=== PATIENT | female | born 1980 | race Hispanic/Latino ===

== ENCOUNTER 2022-10-31 05:55 | Day surgery (SDC) | payer MEDICAID ==
[2022-10-30 17:05] VITALS: BP 101/56; PULSE 71; RESP 17
[~2022-10-31] VITALS: Ht 149.9 cm; Wt 58.6 kg
[~2022-10-31 05:55] MED LIST: IBUP-2077 PO; METO10TA41 PO; PREN1TAB80 PO; [UNRECOGNIZED DRUG - OTHER] PO
[2022-10-31 06:10] VITALS: BP 96/53; PULSE 73; RESP 20
[2022-10-31] MEDS ORDERED: PROPOFOL 10 MG/ML 20ML VIAL IV ONE (08:31)
[2022-10-31] MEDS ORDERED: ONDANSETRON 4MG INJ ONE (09:09)
== END 2022-10-31 10:00 | disposition home or self-care (01) ==
LOC: ENDO 05:55 → DAH 05:55 → ENDO 08:48
PROVIDERS: ATTEND Physician Assistant Medical
DX: R13.14 Dysphagia, pharyngoesophageal phase (principal); Z20.822 Contact with and (suspected) exposure to COVID-19; K22.0 Achalasia of cardia; K21.9 Gastro-esophageal reflux disease without esophagitis; K31.84 Gastroparesis; Z98.890 Other specified postprocedural states; Z98.891 History of uterine scar from previous surgery
CPT/HCPCS: 84703; 87426; 36415; 88305; 88342; 43239; J3490; J2405; A4620; A4215 ×2; A4223; A4657 ×2; A7002; A4222; A4221; A4663; A4216; J7030; A4606; J2704